=== PATIENT | male | born 1935 | race Caucasian/White ===

== ENCOUNTER 2017-10-08 01:25 | Observation (INO) | payer MEDICARE ==
[2017-10-08] VITALS (14 sets, daily range): BP systolic 127–142; BP diastolic 70–80
[~2017-10-08] VITALS: Ht 182.9 cm; Wt 108.9 kg
[~2017-10-08 01:25] MED LIST: ALLO-119 PO; ASPI-1471 PO; FURO20TA19 PO; HYDR50TA35 PO; IRON150C19 PO; ISOS20TA64 PO; LANI SUBQ; LEVO-3 PO; NOVOLOG SUBQ; POTA20TA94 PO; PRAV20TA65 PO
[2017-10-08] MEDS ORDERED: NORMOSOL R SOLN(*) 1000 ML BAG 1,000 ML IV PRN (07:50)
[2017-10-08] MEDS ORDERED: MIDAZOLAM 2 MG/2 ML VIAL IVP PRN (07:50)
[2017-10-08] MEDS ORDERED: LIDOCAINE/SOD BICARB 8.4% SYR ID ONE (07:50)
[2017-10-08] MEDS ORDERED: FAMOTIDINE 20 MG TAB PO ONE (07:50)
[2017-10-08] MEDS ORDERED: DEXAMETHASONE SOD 4 MG/ML VIAL ONE (08:51)
[2017-10-08] MEDS ORDERED: ONDANSETRON 4 MG/2 ML VIAL ONE (08:51)
[2017-10-08] MEDS ORDERED: PROPOFOL EMUL(*) 10MG/ML 20 ML 20 ML ONE (08:55)
[2017-10-08] MEDS ORDERED: LIDOCAINE MPF 1% 5 ML VIAL ONE (08:55)
[2017-10-08] MEDS ORDERED: fentaNYL CITR 100 MCG/2 ML AMP ONE ×2 (08:59→13:05)
[2017-10-08] MEDS ORDERED: ceFAZolin(*) 2GM/D5W 50ML 50 ML IVPB ONE (09:00)
--- NOTE | 2017-10-08 11:30 | EKG ---
FACILITY: [facility] PATIENT NAME: EDILBERTO BUCKLEY : [id number] MR: [id number] V: [id number] EXAM DATE: ORDERING PHYSICIAN: DEL TAM TECHNOLOGIST: Jeff Chase Reason : PREOP Blood Pressure : / mmHG Vent. Rate : 061 BPM Atrial Rate : 061 BPM P-R Int : 208 ms QRS Dur : 094 ms QT Int : 450 ms P-R-T Axes : 047 079 084 degrees QTc Int : 453 ms Sinus rhythm with unusual P wave morphology ST and T wave abnormality, consider anterior ischemia Abnormal ECG No previous ECGs available Confirmed by CHINMAY WESTON ([id number] on 10/08/2017 12:56:58 PM Referred By: Confirmed By:CHINMAY WESTON
[2017-10-08] MEDS ORDERED: HYDROCORTISONE 1% CR 28.35 GM TP ONE (11:46)
[2017-10-08] MEDS ORDERED: IOPAMIDOL-200 50 ML VIAL IS ONE (11:46)
[2017-10-08] MEDS ORDERED: OXYCHLOROSENE SOD 2 GM BTL 2 GM in WATER STERILE IRRIG(*) 1000ML 1,000 ML IR ONE (11:55)
[2017-10-08] MEDS ORDERED: BELLADONNA ALK/OPIUM 60MG SUPP PR ONE (12:49)
[2017-10-08] MEDS ORDERED: BELLADONNA ALK/OPIUM 60MG SUPP PR PRN (12:50)
[2017-10-08] MEDS ORDERED: ZOLPIDEM TARTRATE 5 MG TAB PO PRN (12:50)
[2017-10-08] MEDS ORDERED: ONDANSETRON 4 MG/2 ML VIAL IVP PRN (12:50)
[2017-10-08] MEDS ORDERED: FLUSH 10 ML SYR IVP PRN (12:50)
[2017-10-08] MEDS ORDERED: GLYCOPYRROLATE 0.2 MG/ML SDV IVP PRN (12:50)
[2017-10-08] MEDS ORDERED: LR(*) 1000 ML BAG 1,000 ML IV PRN (12:50)
[2017-10-08] MEDS ORDERED: GLYCOPYRROLATE 0.2 MG/ML SDV ONE (12:51)
[2017-10-08] MEDS ORDERED: GENTAMICIN(*) 80 MG/2 ML VIAL 160 MG in NS(*) 0.9% 100 ML BAG 100 ML IVPB ONE (13:00)
[2017-10-08] MEDS: ALBUTEROL 1.25 MG/3ML NEB NEB SCH ×3 (14:01→21:23)
[2017-10-08] MEDS ORDERED: ALLO100T70 PO (14:53)
[2017-10-08] MEDS ORDERED: IRON150C19 PO (14:53)
[2017-10-08] MEDS ORDERED: FURO-47 PO (14:53)
[2017-10-08] MEDS ORDERED: PRAV40TA78 PO (14:53)
[2017-10-08] MEDS ORDERED: LEVO-3 PO (14:55)
--- NOTE | 2017-10-08 16:00 | Hospitalist Progress Note ---
Subjective Progress Notes Subjective Patient seen post-op. Reviewed PMHx and medications. At present he reports doing fairly well. No CP or dyspnea. Physical Exam Vital Signs Date Time Temp Pulse Resp B/P (MAP) Pulse Ox O2 Delivery O2 Flow Rate FiO2 10/08/17 15:15 64 89 Oxy Mask 3.0 10/08/17 15:00 135/77 (96) 10/08/17 14:24 97.6 28 General Appearance: Alert, Awake Cardiovascular: Other (Regular with distant tones) Respiratory: Clear to Auscultation Chest: Other (pacemaker/defibrillator left upper chest) GI: Soft and Non-Tender Extremities: Warm, Perfused Psych: Alert & Oriented X3 Assessment and Plan Problems: (1) CHF (congestive heart failure) Status: Chronic Assessment & Plan: He appears to be fairly well compensated. Will continue his usual regimen with hydralazine, Lasix, Imdur as his BP tolerates. (2) CAD (coronary artery disease) Status: Chronic Assessment & Plan: History of previous stent placement. He is asymptomatic at this time. (3) Type 2 diabetes mellitus Status: Chronic Assessment & Plan: Will resume his usual Lantus regimen, place on ADA diet, watch glucoses, and use SSI as needed. (4) Hypothyroidism Status: Chronic Assessment & Plan: Continue replacement therapy with L-thyroxine. (5) HTN (hypertension) Status: Chronic Assessment & Plan: Watch BPs closely. He will be on his usual hydralazine as his BP tolerates. (6) COPD (chronic obstructive pulmonary disease) Status: Chronic Assessment & Plan: Continue oxygen supplementation. Exam Sepsis Risk: No Definite Risk CHINMAY WESTON MD Oct 08, 2017 15:59
[2017-10-08] MEDS: INSULIN HUM LISPRO 100 UN/ML 3 ML VIAL SUBQ PRN ×2 (17:33→20:50)
[2017-10-08] MEDS: ceFAZolin 1 GM VIAL IVP SCH ×2 (17:34→23:58)
[2017-10-08] MEDS ORDERED: ceFAZolin(*) 1 GM VIAL 1 GM in NS(*) 0.9% 100 ML ADDVANT BAG 100 ML IV SCH (18:00)
[2017-10-08] MEDS: DOCUSATE SODIUM 100 MG CAP PO SCH ×2 (20:50→20:54)
[2017-10-08] MEDS: hydrALAZINE HCL 25 MG TAB PO SCH ×2 (20:50→20:54)
[2017-10-08] MEDS: FAMOTIDINE 20 MG TAB PO SCH (20:50)
[2017-10-08] MEDS: NEOMYCIN/POLYMYX/BACITR OINT 1 PACKET TP SCH (20:50)
[2017-10-08] MEDS: BENZALKONIUM CL 1:750 TOP SOLN TP SCH (20:58)
[2017-10-08] MEDS ORDERED: INSULIN GLARGINE 100 U/ML 3 ML PEN SUBQ SCH (21:00)
[2017-10-08] MEDS ORDERED: PRAVASTATIN SOD 20 MG TAB PO SCH (21:00)
[2017-10-09] VITALS: BP 131/90
[2017-10-09] MEDS: ALBUTEROL 1.25 MG/3ML NEB NEB SCH ×4 (01:27→13:59)
[2017-10-09 04:46] VITALS: BP 135/75
[2017-10-09] MEDS: ceFAZolin 1 GM VIAL IVP SCH ×2 (05:28→12:06)
[2017-10-09] MEDS: ACETAMIN/CODEINE #3 300-30 MG PO PRN ×2 (05:28→12:04)
[2017-10-09] MEDS ORDERED: LEVOTHYROXINE SOD 0.112 MG TAB PO SCH (06:00)
[2017-10-09 06:30] LABS: PLATELET COUNT, AUTOMATED 129 K/uL (150-450)
[2017-10-09 07:42] VITALS: BP 132/78
[2017-10-09] MEDS ORDERED: mitoMYcin 20 MG VIAL 40 MG in WATER STERILE FOR INJ 50 ML VL 40 ML IR ONE (08:00)
--- NOTE | 2017-10-09 08:07 | Hospitalist Progress Note ---
Subjective Progress Notes Subjective He reports doing well. No CP/SOB/N/V. Physical Exam Vital Signs Date Time Temp Pulse Resp B/P (MAP) Pulse Ox O2 Delivery O2 Flow Rate FiO2 10/09/17 07:42 97.9 61 12 132/78 (96) 98 Nasal Cannula 4.0 Intake and Output 10/10/17 07:00 Intake Total 120 ml Balance 120 ml Intake Oral 120 ml General Appearance: Alert, Awake Cardiovascular: Other (Regular with distant tones) Respiratory: Clear to Auscultation Extremities: Warm, Perfused Result Diagram: 10/09/17 0550 10/09/17 0550 Assessment and Plan Problems: (1) CHF (congestive heart failure) Status: Chronic Assessment & Plan: He appears to be fairly well compensated. He will continue his usual regimen with hydralazine, Lasix, Imdur. (2) CAD (coronary artery disease) Status: Chronic Assessment & Plan: History of previous stent placement. He is asymptomatic at this time. (3) Type 2 diabetes mellitus Status: Chronic Assessment & Plan: Will continue his usual Lantus regimen, ADA diet. (4) Hypothyroidism Status: Chronic Assessment & Plan: Continue replacement therapy with L-thyroxine. (5) HTN (hypertension) Status: Chronic Assessment & Plan: He will be on his usual hydralazine as his BP tolerates. (6) COPD (chronic obstructive pulmonary disease) Status: Chronic Assessment & Plan: Continue oxygen supplementation. Exam Sepsis Risk: No Definite Risk CHINMAY WESTON MD Oct 09, 2017 08:07
[2017-10-09] MEDS ORDERED: IRON150C19 PO (08:09)
[2017-10-09] MEDS ORDERED: CIPR-344 PO (08:23)
[2017-10-09] MEDS ORDERED: FAMO20TA28 PO (08:23)
[2017-10-09] MEDS: BENZALKONIUM CL 1:750 TOP SOLN TP SCH (09:00)
[2017-10-09] MEDS ORDERED: ALLOPURINOL 100 MG TAB PO SCH (09:00)
[2017-10-09] MEDS: DOCUSATE SODIUM 100 MG CAP PO SCH (09:00)
[2017-10-09] MEDS: hydrALAZINE HCL 25 MG TAB PO SCH (09:00)
[2017-10-09] MEDS ORDERED: ISOSORBIDE MONONITR 30MG TABCR PO SCH (09:00)
[2017-10-09] MEDS: FAMOTIDINE 20 MG TAB PO SCH (09:09)
[2017-10-09] MEDS: NEOMYCIN/POLYMYX/BACITR OINT 1 PACKET TP SCH (09:10)
[2017-10-09 11:00] VITALS: BP 127/77
[2017-10-09] MEDS ORDERED: LEVO-3 PO (12:23)
--- NOTE | 2017-10-29 16:20 | OPERATIVE REPORT 1 ---
EVENT DATE: October 08, 2017 SURGEON: Brad Beverly MD ANESTHESIOLOGIST: Zan Jauregui MD ANESTHESIA: General anesthetic. PREOPERATIVE DIAGNOSIS Gross hematuria, etiology ? POSTOPERATIVE DIAGNOSES 1. Gross hematuria, etiology ? 2. Inflammatory lesions of the bladder. PROCEDURES PERFORMED 1. Cystourethroscopy. 2. Biopsies times three of inflammatory bladder lesions. 3. Hydrodistention of the bladder. 4. Clorpactin bladder treatment. 5. Mitomycin-C treatment of the bladder. DESCRIPTION OF PROCEDURE Under general anesthetic, the patient was prepped and draped in the standard lithotomy position. The 21 panendoscope was admitted through the urethra into the bladder. Urine was obtained for urinalysis, culture, and sensitivities. The bladder showed 4+ trabeculation. Trigone and ureteral orifices were normal. No bloody efflux from either orifice. There were multiple inflammatory lesions that appeared to be slightly raised, stippled throughout the bladder. Biopsies were obtained times three from individual lesions. The base of the lesions were fulgurated in their entirety. The bladder filled under gravity flow was measured at a total of approximately 600 mL. On drainage of the bladder, there was no bloody drainage. On reinspection of the bladder, there were no glomerulations. Clorpactin solution was introduced under gravity flow. I left it in contact with the bladder for approximately 10 minutes. The bladder was drained. Betadine solution was used to treat the bladder surfaces well. The patient will resume the Mitomycin-C treatment in the a.m. A #18 Alcazar was left indwelling and put to gravity drainage. The patient tolerated the procedure satisfactorily and returned to the recovery room in satisfactory condition. This is an 82-year-old white male complaining of gross hematuria. In followup, he intermittently has had visible blood in the urine, asymptomatic. Options were discussed with the patient. CT IVP was within normal limits. The patient will be ready for discharge home when alert and functional in the a.m. if all is going well. Plan Mitomycin bladder treatment in the a.m. The patient will be discharged home on Cipro, Pepcid, Pyridium, and [place] therapy in addition to his usual medications. MTDD
== END 2017-10-09 12:24 | disposition home or self-care (01) ==
LOC: OR 01:25 → MED 14:25
DX: R31.0 Gross hematuria (principal); N32.9 Bladder disorder, unspecified; E11.9 Type 2 diabetes mellitus without complications; E03.9 Hypothyroidism, unspecified; J44.9 Chronic obstructive pulmonary disease, unspecified; I25.810 Atherosclerosis of coronary artery bypass graft(s) without angina pectoris; I10 Essential (primary) hypertension; I50.9 Heart failure, unspecified
CPT/HCPCS: 36415; 36416; 52224; 81001; 82948; 83036; 85025; 87088; 88305; 93005; 94640; 96372; A4338; A9270; G0378; J0690; J1100; J1580; J1815; J2001; J2405; J2704; J3010; J3490; J7050; J7613; J9280; 82310; 82374; 82435; 82565; 82947; 84132; 84295; 84520; Q9966